=== PATIENT | female | born 1995 | race Caucasian/White ===

== ENCOUNTER 2016-10-08 10:01 | Emergency (ER) | payer SELFPAY ==
[~2016-10-08] VITALS: Ht 170.1 cm; Wt 79.4 kg
[~2016-10-08 10:01] MED LIST: BACTRIM DS 8001 TA1 PO; CIPRO500 MG PO; CLINDAMYCIN HC300 MG PO; CYCLOBENZAPRINE5 M3 PO; FLOMAX0.4 MG PO; HYDROCODONE BIT1 T11 PO; MEDROL DOSEPAK4 MG PO; Motrin,Rufen800 MG PO; NAPROSYN500 MG PO; PYRIDIUM200 MG PO; ULTRAM50 MG PO; ZITHROMAX250 MG PO; Zofran4 MG PO
[2016-10-08 10:36] LABS: BASO # 0.1 10*3/uL (0.0-0.1); BASO % 0.4 % (0.0-1.0); EOS # 0.2 10*3/uL (0.0-0.4); EOS % 1.6 % (1.0-4.0); HEMATOCRIT 37.1 % (37.0-47.0); HEMOGLOBIN 12.9 g/dl (12.0-16.0); IG # 0.1 10*3/uL (0.0-0.1); LYMPH # 2.8 10*3/uL (1.3-4.4); LYMPH % 20.8 % (27.0-41.0); MEAN CORPUSCULAR HGB 31.3 pg (27.0-31.0); MEAN CORPUSCULAR HGB CONC 34.8 g/dl (33.0-37.0); MEAN PLATELET VOLUME 10.7 fl (9.6-12.3); MONO # 0.9 10*3/uL (0.1-1.0); MONO % 6.4 % (3.0-9.0); NEUT # 9.4 10*3/uL (2.3-7.9); NEUT % 70.4 % (47.0-73.0); PLATELET COUNT AUTOMATED 268 10*3/uL (130-400); RED BLOOD COUNT 4.12 10*6/uL (4.10-5.10); WHITE BLOOD COUNT 13.4 10*3/uL (4.8-10.8)
[2016-10-08 10:51] LABS: ALBUMIN 3.7 gm/dl (3.1-4.5); ALKALINE PHOSPHATASE 66 U/L (45-117); BILIRUBIN, TOTAL 0.3 mg/dl (0.2-1.0); BUN 11 mg/dl (7-24); CARBON DIOXIDE 24 mmol/L (21-32); CHLORIDE 110 mmol/L (98-107); EST GLOM FILT AFRICAN AMERICAN > 60 ml/min; GLUCOSE 88 mg/dL (65-99); POTASSIUM 3.7 mmol/L (3.5-5.1); SGOT/AST 20 IU/L (3-35); SGPT/ALT 22 U/L (12-78); SODIUM 141 mmol/L (136-145); TOTAL PROTEIN 6.8 gm/dL (6.4-8.2)
[2016-10-08 10:51] LABS: BILIRUBIN NEGATIVE (NEGATIVE); BLOOD NEGATIVE (NEGATIVE); CLARITY SL CLOUDY (CLEAR); COLOR YELLOW (YELLOW); GLUCOSE NEGATIVE (NEGATIVE); KETONE NEGATIVE (NEGATIVE); LEUKO ESTERASE NEGATIVE (NEGATIVE); NITRITE NEGATIVE (NEGATIVE); PROTEIN NEGATIVE (NEGATIVE); UROBILINOGEN 0.2 E.U./dl (0.2-1.0)
[2016-10-08 10:59] LABS: RBC 0-2 rbc/hpf (0-2); URINE REFLEX COMMENT NO (NO)
[2016-10-08] MEDS ORDERED: ULTRAM50 MG PO (12:42)
[2016-10-08] MEDS ORDERED: ZOFRAN ODT4 MG SL (12:42)
== END 2016-10-08 12:55 | disposition home or self-care (01) ==
LOC: ED 10:01
PROVIDERS: Nurse Practitioner Family
DX: K85.90 Acute pancreatitis without necrosis or infection, unspecified (principal); F17.200 Nicotine dependence, unspecified, uncomplicated; Z88.0 Allergy status to penicillin; Z90.49 Acquired absence of other specified parts of digestive tract

== ENCOUNTER 2016-10-31 05:23 | Inpatient (IN) | payer SELFPAY ==
[~2016-10-31] VITALS: Ht 170.2 cm; Wt 78.2 kg
[~2016-10-31 05:23] MED LIST changes: +ZOFRAN ODT4 MG SL
[2016-10-31 05:30] VITALS: BP 119/57
[2016-10-31 05:54] LABS: BILIRUBIN NEGATIVE (NEGATIVE); BLOOD NEGATIVE (NEGATIVE); CLARITY CLEAR (CLEAR); COLOR YELLOW (YELLOW); GLUCOSE NEGATIVE (NEGATIVE); KETONE NEGATIVE (NEGATIVE); LEUKO ESTERASE NEGATIVE (NEGATIVE); NITRITE NEGATIVE (NEGATIVE); SPECIFIC GRAVITY <= 1.005 (1.005-1.030); UROBILINOGEN 0.2 E.U./dl (0.2-1.0)
[2016-10-31 05:59] LABS: BASO # 0.1 10*3/uL (0.0-0.1); BASO % 0.5 % (0.0-1.0); EOS # 0.2 10*3/uL (0.0-0.4); EOS % 1.4 % (1.0-4.0); HEMATOCRIT 40.9 % (37.0-47.0); LYMPH # 3.6 10*3/uL (1.3-4.4); LYMPH % 25.3 % (27.0-41.0); MEAN CELL VOLUME 89.7 fl (81.0-99.0); MEAN CORPUSCULAR HGB 30.7 pg (27.0-31.0); MEAN CORPUSCULAR HGB CONC 34.2 g/dl (33.0-37.0); MEAN PLATELET VOLUME 10.7 fl (9.6-12.3); MONO # 0.8 10*3/uL (0.1-1.0); MONO % 5.3 % (3.0-9.0); NEUT # 9.6 10*3/uL (2.3-7.9); NEUT % 67.3 % (47.0-73.0); PLATELET COUNT AUTOMATED 323 10*3/uL (130-400); RED BLOOD COUNT 4.56 10*6/uL (4.10-5.10); WHITE BLOOD COUNT 14.3 10*3/uL (4.8-10.8)
[2016-10-31 06:01] LABS: BACTERIA 1+; WBC 0-2 wbc/hpf (0-5)
[2016-10-31 06:19] LABS: ALBUMIN 3.9 gm/dl (3.1-4.5); ALKALINE PHOSPHATASE 77 U/L (45-117); BUN 10 mg/dl (7-24); CHLORIDE 109 mmol/L (98-107); CREATININE 0.76 mg/dL (0.55-1.02); MAGNESIUM 2.1 mg/dL (1.5-2.1); POTASSIUM 4.2 mmol/L (3.5-5.1); SGOT/AST 19 IU/L (3-35); SGPT/ALT 19 U/L (12-78); SODIUM 142 mmol/L (136-145); TOTAL PROTEIN 7.5 gm/dL (6.4-8.2)
[2016-10-31 06:23] LABS: LIPASE 2017 U/L (73-393)
--- NOTE | 2016-10-31 06:38 | NUR ---
PT MEDIACTED PER EMAR. PT RATES PAIN 7 OUT OF 10 IN ABDOMEN.
[2016-10-31 07:27] VITALS: BP 119/65
--- NOTE | 2016-10-31 07:28 | NUR ---
REPORT RECEIVED AT 0715 FROM ESTHER MURILLO. PT IS AWAKE AND ALERT. SHE HAS RIGHT SIDED ABDOMINAL PAIN. THE PAIN HAS IMPROVED AFTER TORADOL.RATES A 7 NOW ON PAIN SCALE. IV FLUID IS INFUSING,SITE APPEARS ASYMPTOMATIC. HER COLOR IS PINK,SKIN W/D. PULSE OX ON ROOM AIR IS 100% WAITING FOR CAT SCAN REPORT. DESTINEE MURILLO
--- NOTE | 2016-10-31 08:33 | NUR ---
Time: 829 A 21 year old FEMALE admitted to 5E under services of JOE JOHNSON DO. Pt. arrived via wheel chair from ER. Chief complaint: ABDOMINAL PAIN. CATE LONG
[2016-10-31 08:52] VITALS: BP 116/66
[2016-10-31 12:00] VITALS: BP 100/63
--- NOTE | 2016-10-31 15:48 | NUR ---
MEDICATED WITH PRN NORCO PER ORDER AND REQUEST.
[2016-10-31 16:00] VITALS: BP 124/56
--- NOTE | 2016-10-31 18:47 | NUR ---
PATIENT HAVING LOCAL REACTION TO NICOTINE PATCH(RED/ITCHY) REQUESTING GUM OR INHALER. DR. ODESSA KEY.
[2016-10-31 20:00] VITALS: BP 110/58
[2016-11-01] VITALS: BP 117/56
--- NOTE | 2016-11-01 03:47 | NUR ---
24 HR chart check completed.
[2016-11-01 06:11] LABS: BASO % 0.5 % (0.0-1.0); EOS # 0.1 10*3/uL (0.0-0.4); EOS % 1.7 % (1.0-4.0); HEMATOCRIT 35.4 % (37.0-47.0); LYMPH # 4.1 10*3/uL (1.3-4.4); LYMPH % 52.2 % (27.0-41.0); MEAN CELL VOLUME 90.8 fl (81.0-99.0); MEAN CORPUSCULAR HGB 30.3 pg (27.0-31.0); MEAN CORPUSCULAR HGB CONC 33.3 g/dl (33.0-37.0); MEAN PLATELET VOLUME 11.1 fl (9.6-12.3); MONO # 0.5 10*3/uL (0.1-1.0); MONO % 6.4 % (3.0-9.0); NEUT # 3.1 10*3/uL (2.3-7.9); NEUT % 38.9 % (47.0-73.0); PLATELET COUNT AUTOMATED 267 10*3/uL (130-400); RED CELL DISTRI WIDTH 13.2 % (0-14.5); WHITE BLOOD COUNT 7.9 10*3/uL (4.8-10.8)
[2016-11-01 06:17] LABS: ALBUMIN 3.3 gm/dl (3.1-4.5); ALKALINE PHOSPHATASE 65 U/L (45-117); BUN 6 mg/dl (7-24); CHLORIDE 113 mmol/L (98-107); CHOLESTEROL 102 mg/dL (<200); CREATININE 0.68 mg/dL (0.55-1.02); HDL CHOLESTEROL 25 mg/dl (40-60); HEMOGLOBIN 11.8 g/dl (12.0-16.0); LDL CHOLESTEROL 59 mg/dL (9-159); LIPASE 117 U/L (73-393); POTASSIUM 3.6 mmol/L (3.5-5.1); SGOT/AST 13 IU/L (3-35); SGPT/ALT 17 U/L (12-78); SODIUM 144 mmol/L (136-145); TOTAL PROTEIN 6.5 gm/dL (6.4-8.2); TRIGLYCERIDES 91 mg/dl (<150); VLDL CHOLESTEROL 18 mg/dL (6-40)
[2016-11-01 06:27] LABS: ACT PARTIAL THROMBO TIME 26.2 SECONDS (20.8-31.5)
[2016-11-01 07:38] LABS: VITAMIN D, 25-HYDROXY 34.7 ng/mL (30-100)
[2016-11-01 08:00] VITALS: BP 112/60
--- NOTE | 2016-11-01 09:18 | NUR ---
master planner in to see patient to discuss assessment/discharge plans. Patient acted very aggitated and short with me while asking questions, would not answer. Stated she is going home when discharged.
[2016-11-01 12:00] VITALS: BP 121/78
[2016-11-01 16:00] VITALS: BP 113/61
--- NOTE | 2016-11-01 16:30 | NUR ---
PATIENT TO NUCLEAR MEDICINE FOR HIDA SCAN.
[2016-11-01 20:00] VITALS: BP 110/60
--- NOTE | 2016-11-01 21:31 | NUR ---
PATIENT REQUESTING PRN PAIN MEDICATION FOR ABDOMINAL PAIN. WILL REASSESS FOR EFFECTIVENSS OF MEDICATION
--- NOTE | 2016-11-01 22:39 | NUR ---
CHART CHECK COMPLETE
[2016-11-02] VITALS: BP 110/60
[2016-11-02 04:00] VITALS: BP 115/63
--- NOTE | 2016-11-02 05:41 | NUR ---
PATIENT RESTING IN BED CALL LIGHT N REACH NO CO AT THINS TIME
[2016-11-02 05:49] LABS: BASO % 0.4 % (0.0-1.0); EOS # 0.1 10*3/uL (0.0-0.4); EOS % 1.3 % (1.0-4.0); HEMOGLOBIN 11.4 g/dl (12.0-16.0); LYMPH # 4.6 10*3/uL (1.3-4.4); LYMPH % 44.9 % (27.0-41.0); MEAN CELL VOLUME 88.9 fl (81.0-99.0); MEAN CORPUSCULAR HGB 30.7 pg (27.0-31.0); MEAN CORPUSCULAR HGB CONC 34.5 g/dl (33.0-37.0); MEAN PLATELET VOLUME 10.8 fl (9.6-12.3); MONO # 0.8 10*3/uL (0.1-1.0); MONO % 8.1 % (3.0-9.0); NEUT # 4.6 10*3/uL (2.3-7.9); PLATELET COUNT AUTOMATED 252 10*3/uL (130-400); RED BLOOD COUNT 3.71 10*6/uL (4.10-5.10); RED CELL DISTRI WIDTH 12.8 % (0-14.5); WHITE BLOOD COUNT 10.3 10*3/uL (4.8-10.8)
[2016-11-02 06:25] LABS: BUN 3 mg/dl (7-24); CHLORIDE 113 mmol/L (98-107); CREATININE 0.58 mg/dL (0.55-1.02); LIPASE 1235 U/L (73-393); POTASSIUM 3.5 mmol/L (3.5-5.1); SODIUM 143 mmol/L (136-145)
[2016-11-02 08:00] VITALS: BP 102/50
--- NOTE | 2016-11-02 08:00 | NUR ---
PATIENT RESTING WITH NO DISTRESS.
--- NOTE | 2016-11-02 10:00 | NUR ---
AM MEDS TAKEN.
[2016-11-02 12:00] VITALS: BP 121/57
--- NOTE | 2016-11-02 15:03 | NUR ---
DR. DIAZ NOTIFIED THAT PATIENT TOLERATED HER DIET.
--- NOTE | 2016-11-02 15:39 | NUR ---
HEP LOCK REMOVED FOR DISCHARGE. Discharge instructions reviewed with patient/family. Patient receptive and verbalizes understanding. Follow-up care arranged. Written instructions given to patient/family. CATE MOLINA
== END 2016-11-02 15:30 | disposition home or self-care (01) | DRG 440 ==
LOC: ED 05:23 → EDHOLD 07:44 → 5E 07:44
PROVIDERS: Emergency Medicine Emergency Medical Services; Family Medicine; Internal Medicine; ADMIT Emergency Medicine
DX: K85.90 Acute pancreatitis without necrosis or infection, unspecified (principal); R00.1 Bradycardia, unspecified; D72.820 Lymphocytosis (symptomatic); K08.89 Other specified disorders of teeth and supporting structures; F17.210 Nicotine dependence, cigarettes, uncomplicated; Z88.0 Allergy status to penicillin

== ENCOUNTER → 2016-11-12 | Outpatient (CLI) | payer SELFPAY | END | disposition home or self-care (01) | LOC: RESCLI 03:08 | DX: K85.00 Idiopathic acute pancreatitis without necrosis or infection (principal); F17.200 Nicotine dependence, unspecified, uncomplicated; Z71.6 Tobacco abuse counseling; Z88.0 Allergy status to penicillin ==

== ENCOUNTER 2020-10-09 19:20 | Emergency (ER) | payer OTHER ==
[~2020-10-09] VITALS: Ht 165.1 cm; Wt 80.7 kg
[2020-10-09] MEDS ORDERED: CLINDAMYCIN HC300 MG PO (20:21)
== END 2020-10-09 20:36 | disposition home or self-care (01) ==
LOC: ED 19:20
DX: K02.9 Dental caries, unspecified (principal); F17.200 Nicotine dependence, unspecified, uncomplicated; Z88.0 Allergy status to penicillin; Z79.899 Other long term (current) drug therapy; Z90.49 Acquired absence of other specified parts of digestive tract

== ENCOUNTER 2022-04-05 14:26 | Emergency (ER) | payer OTHER ==
[~2022-04-05] VITALS: Ht 165.1 cm; Wt 78.0 kg
[2022-04-05] MEDS ORDERED: CYCLOBENZAPRINE5 M3 PO (16:09)
[2022-04-05] MEDS ORDERED: MEDROL DOSEPAK4 MG PO (16:09)
== END 2022-04-05 16:20 | disposition home or self-care (01) ==
LOC: ED 14:26
DX: M54.9 Dorsalgia, unspecified (principal); Z88.0 Allergy status to penicillin; F17.200 Nicotine dependence, unspecified, uncomplicated; F10.90 Alcohol use, unspecified, uncomplicated

== ENCOUNTER 2024-05-09 10:05 | Emergency (ER) | payer SELFPAY ==
[~2024-05-09] VITALS: Ht 170.1 cm; Wt 81.6 kg
[2024-05-09] MEDS ORDERED: PROZAC20 MG PO (10:22)
[2024-05-09] MEDS ORDERED: Acetaminophen/Oxycodone 5 MG/325 MG TABLET PO ONE (10:30)
[2024-05-09] MEDS ORDERED: CLINDAMYCIN HCL 300 MG CAPSULE PO ONE (10:30)
[2024-05-09] MEDS ORDERED: MELOXICAM15 MG PO (10:34)
[2024-05-09] MEDS ORDERED: CLINDAMYCIN HC300 MG PO (10:34)
== END 2024-05-09 10:42 | disposition home or self-care (01) ==
LOC: ED 10:05
DX: K04.7 Periapical abscess without sinus (principal); R22.0 Localized swelling, mass and lump, head; F41.9 Anxiety disorder, unspecified; F17.200 Nicotine dependence, unspecified, uncomplicated; Z88.0 Allergy status to penicillin; Z90.49 Acquired absence of other specified parts of digestive tract; Z90.89 Acquired absence of other organs